=== PATIENT | female | born 1955 | race Caucasian/White ===

== ENCOUNTER 2016-11-16 09:23 | Emergency (ER) | payer OTHER ==
[~2016-11-16] VITALS: Ht 167.6 cm; Wt 74.4 kg
[2016-11-16] MEDS ORDERED: TOPI25TA7 PO (09:55)
[2016-11-16] MEDS ORDERED: MONT10TA6 PO (09:57)
[2016-11-16] MEDS ORDERED: ESTR1.25 PO (09:57)
[2016-11-16] MEDS ORDERED: METF500T4 PO (09:57)
[2016-11-16] MEDS ORDERED: FEXO1TAB27 PO (09:57)
[2016-11-16 09:58] VITALS: BP 133/77
--- NOTE | 2016-11-16 10:38 | PHYS DOC ---
General Chief Complaint: OTHER COMPLAINTS Stated Complaint: LEFT SIDE PAIN Time Seen by MD: 09:26 Source: patient Exam Limitations: no limitations Problems: History of Present Illness Initial Comments Patient is a 61-year-old female who comes to the ED complaining of left face and arm symptoms. Patient states these symptoms have been intermittent or several months now. He saw her primary care doctor this week and a CT evaluation was ordered and completed. The patient has not followed up with her doctor for an office visit, but received a phone call that there were no emergent findings. She states that she's had intermittent sensations of tingling and numbness at her left mastoid process and left cheek. She denies any ptosis tearing tenderness, hearing loss or bad teeth, denies any TMJ symptoms. She denies any trauma, and the left arm symptoms are not dermatomal in origin. She denies any headache until recently. She says her sinuses have been inflamed causing her to have intermittent facial discomfort, but no actual headache. She denies any focal neurologic deficit, her metformin and Toprol were recently decreased, as the patient has lost a significant amount of weight after lap band procedure. She denies any symptoms in the emergency department stating that her symptoms are intermittent and typically very short-lived. She says she did feel cold in her left arm and may be her left leg earlier today but denies concomitant headache, left arm symptoms or actual hard left lower extremity neuro deficits. She was talking with a friend earlier today and after describing her symptoms. Her friend convinced her to come to the emergency department urgently. She denies chest pain difficulty breathing. Timing/Duration: changing over time Severity: mild Modifying Factors: improves with other Associated Symptoms: other Allergies: Coded Allergies: Penicillins (Verified Allergy, Intermediate, 11/16/16) Past Medical History Medical History: diabetes, hypertension, other (obesity) Surgical History: other (lap band, hysterectomy) Family History Significant Family History: heart disease (sister was recently diagnosed with coronary artery disease) Social History Smoker: non-smoker Alcohol: none Drugs: none Review of Systems Constitutional: denies chills, denies diaphoresis, denies fever, denies malaise EENTM: denies eye pain, denies blurred vision, denies tearing, denies ear pain , denies ear discharge, denies nose pain, denies nose congestion, denies throat pain, denies throat swelling, denies mouth pain, denies mouth swelling Respiratory: denies cough, denies shortness of breath, denies wheezing Cardiovascular: denies chest pain, denies palpitations, denies syncope Gastrointestinal: denies abdominal pain, denies diarrhea, denies nausea, denies vomiting Musculoskeletal: denies back pain, denies joint swelling, denies neck pain Psychiatric/Neurological: see HPI Hematologic/Lymphatic: denies blood clots, denies easy bleeding, denies easy bruising Physical Exam General Appearance: WD/WN, no apparent distress Eyes: bilateral eye normal inspection, bilateral eye PERRL, bilateral eye EOMI Ear, Nose, Throat: hearing grossly normal, normal ENT inspection, normal pharynx Neck: supple (left sided scalene hypertonicity with tenderness noted. No bony tenderness. 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 No STEMI. Interpreted by Dr. Torres. The patient needs an outpatient stress test for risk factors, we discussed that. I discussed peripheral nerve entrapment at length. I discussed signs and symptoms to monitor and indication to return to the ED. Today's symptoms appear to be peripheral nerve entrapment from muscle spasm in the neck. Patient has had no chest pain or trouble breathing, no headache or neuro deficits here in the emergency department and her vital signs been stable. Patient is stable for discharge home. She agrees to follow-up closely per instructions. See departure. Departure Time of Disposition: 10:35 Disposition: 01 HOME, SELF-CARE Diagnosis: L scalene spasm with peripheral neuropathy Condition: GOOD Patient Instructions: Cervical Strain and Sprain with Rehab-SportsMed Additional Instructions: As discussed, it appears that your symptoms result from intermittent spasm of skeletal muscle which can at times entrap peripheral nerves. Heating pad, stretching as discussed. OTC tylenol/ibuprofen as needed. Consider chiropractic or massage therapy. Follow up with your doctor for CT results and to discuss possible Physical Therapy referral. Follow up with your doctor to arrange for stress testing. Return to ED with new or changing symptoms. DAVID TORRES DO Nov 16, 2016 10:38
--- NOTE | 2016-11-16 17:20 | EKG ---
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
== END 2016-11-16 10:51 | disposition home or self-care (01) ==
LOC: ER 09:23
DX: M62.838 Other muscle spasm (principal); E11.42 Type 2 diabetes mellitus with diabetic polyneuropathy; E66.9 Obesity, unspecified; I10 Essential (primary) hypertension; Z88.0 Allergy status to penicillin
CPT/HCPCS: 93005; 99283-25

== ENCOUNTER → 2017-05-14 | Outpatient (CLI) | payer OTHER ==
[~2017-05-14] MED LIST: ESTR1.25 PO; FEXO1TAB27 PO; METF500T4 PO; MONT10TA6 PO; TOPI25TA7 PO
--- NOTE | 2017-05-14 17:15 | RAD ---
CT study of the maxillofacial bones without contrast Clinical indications: Numbness across the face. No surgery to sinus area. [employer] protocol. TECHNIQUE: Helical CT scanning of the maxillofacial bones and head was performed using the Ener1 protocol. Multiplanar 2-D reconstructions were generated. PQRS compliance Statement One or more of the following individualized dose reduction techniques were utilized for this study: 1. Automated exposure control 2. Adjustment of the mA and/or kV according to patient size 3. Use of iterative reconstruction technique FINDINGS: The maxillary and sphenoid and frontal sinuses are clear. There is mild mucosal thickening of the anterior ethmoid sinuses bilaterally. The posterior ethmoid sinuses are clear bilaterally. No air-fluid levels are evident. No osteolytic process is seen. No intracranial mass lesion or hemorrhage is seen. The orbits are symmetric. No acute fracture is evident. There is S-shaped nasal septal deviation. There is mild mucosal thickening of the middle and inferior turbinates bilaterally. No polyp or soft tissue mass of the nasal passageway is seen. Middle ear cavities are clear bilaterally. The adenoids are not abnormally thickened. IMPRESSION: Mild mucosal thickening of the anterior ethmoid sinuses bilaterally. No air-fluid levels. Electronically signed by: Abraham Qureshi MD (05/14/2017 5:12 PM) [facility]
== END | disposition home or self-care (01) ==
LOC: CT 08:46
PROVIDERS: ATTEND Otolaryngology
DX: G50.1 Atypical facial pain (principal); J34.2 Deviated nasal septum; R20.0 Anesthesia of skin
CPT/HCPCS: 70486

== ENCOUNTER 2017-11-20 14:01 | Inpatient (IN) | payer OTHER ==
[~2017-11-20] VITALS: Ht 167.6 cm; Wt 78.9 kg
[~2017-11-20 14:01] MED LIST changes: +METF500T16 PO; -METF500T4 PO
[2017-11-20 14:43] VITALS: BP 106/74
[2017-11-20] MEDS ORDERED: ONDANSETRON PF 4 MG/2 ML VIAL. IV PRN (15:00)
[2017-11-20] MEDS ORDERED: IOHEXOL 300 MG/ML 75 ML VIAL. IV ONE (15:15)
[2017-11-20] MEDS ORDERED: IOHEXOL 240 MG/ML 50ML VIAL. PO ONE (15:15)
[2017-11-20] MEDS: IV NORMAL SALINE 1,000ML 1,000 ML IV SCH ×2 (15:25→23:34)
[2017-11-20 15:27] LABS: ALBUMIN 3.9 g/dL (3.4-5.0); ALBUMIN/GLOBULIN RATIO 1.1 (1.0-1.7); CALCIUM 9.2 mg/dL (8.5-10.1); CREATININE 1.1 mg/dL (0.6-1.0); GFR 50.3; TOTAL BILIRUBIN 0.5 mg/dL (0.2-1.0); TOTAL PROTEIN 7.5 g/dL (6.4-8.2)
[2017-11-20] MEDS ORDERED: CONTRAST GIVEN MC PRN (15:30)
[2017-11-20 15:31] LABS: BASO % 0 % (0-3); EOS % 0 % (0-3); HEMATOCRIT 41.1 % (36.0-47.0); LYMPH # 0.9 x10^3/uL (1.0-4.8); LYMPH % 6 % (24-48); MEAN CORPUSCULAR HEMOGLOBIN 30 pg (25-35); MEAN CORPUSCULAR HGB CONC 34 g/dL (31-37); MEAN CORPUSCULAR VOLUME 89 fL (79-100); MONO # 0.6 x10^3/uL (0.0-1.1); MONO % 4 % (0-9); NEUT # 13.7 x10^3uL (1.8-7.7); NEUT % 90 % (31-73); PLATELET COUNT 171 x10^3/uL (140-400); RED BLOOD COUNT 4.64 x10^6/uL (3.50-5.40); RED CELL DISTRIBUTION WIDTH 13.1 % (11.5-14.5); WHITE BLOOD COUNT 15.2 x10^3/uL (4.0-11.0)
[2017-11-20 15:43] LABS: INFLUENZA A PATIENT NEGATIVE (NEGATIVE); INFLUENZA B PATIENT NEGATIVE (NEGATIVE)
--- NOTE | 2017-11-20 15:48 | EKG ---
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
[2017-11-20] MEDS ORDERED: MINO2.5T12 PO (16:10)
[2017-11-20] MEDS ORDERED: ZOLP10TA4 PO (16:10)
[2017-11-20] MEDS ORDERED: METO50TA29 PO (16:10)
[2017-11-20 16:36] LABS: % BANDS 11 % (0-9); % SEGS 76 % (35-66)
[2017-11-20 16:37] LABS: % BASOS 0 % (0-3); % EOS 0 % (0-5); % LYMPHS 10 % (24-48); % MONOS 3 % (0-10); PLT ESTIMATE ADEQUATE (ADEQUATE)
--- NOTE | 2017-11-20 16:44 | NUR ---
The patient, LES PICKENS, 62 y/o, F admitted by VLADIMIR AUSTIN MD, was given written information regarding hospital policies, unit procedures and contact persons. Valuables were checked and left in room. Patient direct admit from Dr. Tesfaye office, states this came on very sudden. Started to have nausea, achy and fever like symptoms. Complains of headache and pain to left lower quadrant. Orders obtained from physicians office, and aware of arrival to unit. IV and labs obtained, will check Influenza and strep test. Pt able to verbalize POC, will continue to monitor.
[2017-11-20] MEDS ORDERED: IBUPROFEN 600 MG TABLET. PO PRN (17:15)
[2017-11-20 17:32] LABS: BACTERIA,URINE 0 /HPF (0-FEW); BILIRUBIN,URINE NEG (NEG); CLARITY,URINE CLEAR; COLOR,URINE STRAW; GLUCOSE,URINE NEG (NEG); NITRITE,URINE NEG (NEG); RBC,URINE 0 /HPF (0-2); SQUAMOUS EPITHELIAL CELL,UR OCC /LPF; UROBILINOGEN,URINE 0.2 mg/dL (0.2 mg/dL); WBC,URINE 0 /HPF (0-4)
--- NOTE | 2017-11-20 17:36 | RAD ---
CT CHEST ABD PELVIS W/CONTRAST Indication: Left lower quadrant pain for 3 days, chills and coughing, low-grade fever Technique: Postcontrast CT imaging was performed of the chest, abdomen, pelvis, multiplanar reconstruction images submitted. One or more of the following individualized dose reduction techniques were utilized for this examination: 1. Automated exposure control 2. Adjustment of the mA and/or kV according to patient size 3. Use of iterative reconstruction technique. Contrast: 75 cc Omnipaque 300 Comparison: None CHEST: Findings: There is some motion degradation. There is no pleural or pericardial effusion, pneumothorax, significant infiltrate. Major airways are patent. There is mild probable atelectasis of the right middle lobe more medially. There is small hiatal hernia, nonspecific wall thickening. There is mild the dilatation of the esophagus. Thoracic aortic caliber is within normal limits without intraluminal flap. There is no abnormality thyroid gland. There is mild superior thoracic levoscoliosis. IMPRESSION: 1. There is mild dilatation of the esophagus, small hiatal hernia with nonspecific wall thickening of involved segment. There is gastric band present. 2. There is mild atelectasis right middle lobe. Abdomen and pelvis: FINDINGS: There is gastric band, again small hiatal hernia with wall thickening of involved segment. Estimated Phi angle is about 45 degrees, considered within normal limits, no previous exams to evaluate for change in position of the gastric band. No focal abnormality is identified of the liver, spleen, pancreas. Gallbladder is present without obvious intraluminal abnormality. Both kidneys enhance without significant hydronephrosis. There are a few small hypodense foci of the kidneys bilaterally too small to accurately characterize, largest on the right about 0.7 cm. Bowel is not significantly dilated. There is no free air or free fluid. There is no significant inflammatory change change localized about the bowel. Descending and sigmoid colon are decompressed, limits accurate evaluation of wall thickness. There is no adrenal nodularity. Normal appendix is visualized. Impression: 1. No significant inflammatory change is identified. 2. There is gastric band, small hiatal hernia with nonspecific wall thickening involved segment. Electronically signed by: Curt Banda MD (11/20/2017 5:32 PM) [facility]
[2017-11-20 18:40] VITALS: BP 101/61
[2017-11-20 23:00] VITALS: BP 106/64
[2017-11-21 04:00] VITALS: BP_SYST 103; BP_SYST 115; BP_DIAS 59; BP_DIAS 65
--- NOTE | 2017-11-21 05:00 | NUR ---
Pt has been sleeping most of this shift. Pt has been afebrile and VSS throughout shift.
[2017-11-21] MEDS: IV NORMAL SALINE 1,000ML 1,000 ML IV SCH (07:57)
[2017-11-21 08:01] LABS: BASO % 0 % (0-3); EOS # 0.2 x10^3/uL (0.0-0.7); EOS % 2 % (0-3); LYMPH # 2.5 x10^3/uL (1.0-4.8); LYMPH % 34 % (24-48); MEAN CORPUSCULAR HEMOGLOBIN 31 pg (25-35); MEAN CORPUSCULAR HGB CONC 34 g/dL (31-37); MEAN CORPUSCULAR VOLUME 89 fL (79-100); MONO # 0.4 x10^3/uL (0.0-1.1); MONO % 6 % (0-9); NEUT # 4.1 x10^3uL (1.8-7.7); NEUT % 57 % (31-73); PLATELET COUNT 214 x10^3/uL (140-400); RED BLOOD COUNT 3.91 x10^6/uL (3.50-5.40); RED CELL DISTRIBUTION WIDTH 13.3 % (11.5-14.5); WHITE BLOOD COUNT 7.2 x10^3/uL (4.0-11.0)
[2017-11-21 08:04] LABS: ALBUMIN 2.6 g/dL (3.4-5.0); ALBUMIN/GLOBULIN RATIO 0.8 (1.0-1.7); CALCIUM 7.6 mg/dL (8.5-10.1); CREATININE 0.9 mg/dL (0.6-1.0); GFR 63.4; POTASSIUM 3.8 mmol/L (3.5-5.1); TOTAL BILIRUBIN 0.6 mg/dL (0.2-1.0); TOTAL PROTEIN 5.9 g/dL (6.4-8.2)
[2017-11-21] MEDS ORDERED: levoFLOXacin 500 MG TABLET PO SCH (10:00)
[2017-11-21 11:00] VITALS: BP 112/55
[2017-11-21] MEDS ORDERED: LEVO500T59 PO (15:57)
[2017-11-21] MEDS ORDERED: METR500T PO (15:57)
--- NOTE | 2017-11-21 16:19 | NUR ---
PT dc to home. PT is able to verbalize understanding of discharge instructions and medications. PT left with friend driving and 2 Rx. Pedro PICKERING
[2017-11-21 16:20] VITALS: BP 132/61
[2017-11-21] MEDS ORDERED: LACTOBACILLUS RHAMNOSUS GG 1 CAPSULE. PO SCH (21:00)
--- NOTE | 2017-11-22 01:21 | PN ---
DATE: SUBJECTIVE: A 62-year-old female, who came in with colitis. She had an elevated white count at 15,000. Also please note an elevated left shift, 11 bands. The patient did have probable colitis. She had left lower quadrant pain. A CT scan did not pick it up contrast, oral contrast was not used. The patient is feeling better this morning. She is on IV Flagyl and oral Levaquin, making good progress, hopefully ready for discharge, but may need to stay on a low-fiber diet for some time and then make further evaluation on her as indicated. IMPRESSION: Colitis of the sigmoid area. PLAN: As above. VLADIMIR AUSTIN MD DR: GIORGIO/rafael JOB#: [id number] / [id number]
== END 2017-11-21 16:22 | disposition home or self-care (01) | DRG 872 ==
LOC: ICU 14:20
PROVIDERS: ADMIT Family Medicine; ATTEND Family Medicine
DX: A41.9 Sepsis, unspecified organism (principal); K52.9 Noninfective gastroenteritis and colitis, unspecified; E86.0 Dehydration; M79.1 Myalgia
CPT/HCPCS: 36415; 71260; 74177; 80053; 81001; 83605; 84484; 85007; 85025; 87040; 87070; 87641; 87804; 87880; 93005; J3490; Q9967; J7030

== ENCOUNTER → 2019-09-26 | Outpatient (CLI) | payer OTHER ==
[~2019-09-26] MED LIST changes: +LEVO500T59 PO; +METO50TA29 PO; +METR500T PO; +MINO2.5T12 PO; -MONT10TA6 PO; +MONT10TA80 PO; +ZOLP10TA PO; +ZOLP10TA4 PO
== END | disposition home or self-care (01) ==
LOC: LAB 09-25 07:00
PROVIDERS: ATTEND Registered Nurse
DX: Z01.818 Encounter for other preprocedural examination (principal); Z11.59 Encounter for screening for other viral diseases; K21.9 Gastro-esophageal reflux disease without esophagitis
CPT/HCPCS: C9803; U0003; 36415

== ENCOUNTER → 2019-09-30 | Day surgery (SDC) | payer OTHER ==
[~2019-09-30] MED LIST changes: +IPRATRPIUM/ALBUTEROL 0.5/2.5MG 3 ML NEBU. NEB PRN; +IV RINGERS SOLUTION,LACTATED 1,000 ML IV SCH; +MIDAZOLAM HCL PF 2 MG/2 ML VIAL. IV ONE; +PROPOFOL 10,000 MCG/ML (20ML) VIAL IV ONE
[2019-09-30 08:49] VITALS: BP 111/70
--- NOTE | 2019-10-01 17:07 | PATHOLOGY ---
[facility] Accession Number: [id number] . 01 Material submitted: . PART A: stomach - GASTRIC BIOPSY PART B: stomach - GASTRIC POLYP PART C: esophagus - DISTAL ESOPHAGUS. Modifiers: distal . 01 Clinical history: . None provided . 02 Diagnosis: A. Gastric biopsies: - Chronic gastritis, mild. . B. Gastric biopsy, gastric polyp: - Fundic gland polyp. . C. Esophageal biopsy, distal esophagus: - Esophagitis with eosinophils. See comment. (JPM:marina; 10/01/2019) [facility] [place] 10/01/2019 0919 Local . 02 Comment: Sections of the gastric biopsy reveal segments of gastric antral/body transition mucosa showing congestion and mild chronic inflammation. A properly controlled immunoperoxidase stain for Helicobacter is negative for Helicobacter organisms. . Sections of the gastric polyp biopsy reveal a polypoid segment of gastric body mucosa showing scattered cystically dilated fundic glands consistent with fundic gland polyp. There are no adenomatous changes or evidence of malignancy. . Sections of the distal esophageal biopsy reveal a segment of hyperplastic squamous esophageal mucosa showing chronic inflammation. There are focally increased intraepithelial eosinophils. The differential diagnosis of esophagitis with eosinophils includes reflux esophagitis, "pill esophagitis", and eosinophilic esophagitis. Focally, there are greater than 20-30 intraepithelial eosinophils per high power field. This finding is suggestive of eosinophilic esophagitis. Correlate clinically. (JPM:marina; 10/01/2019) . Special stain performed: Immunoperoxidase stain for Helicobacter on A1 . 02 Electronically signed: . Avery Hanna MD, Pathologist NPI- [id number] . 01 Gross description: . A. The specimen is received in formalin, labeled "Deisy Gillette, gastric biopsy". Received are two segments of pale castillo soft tissue measuring 0.4 cm each in maximum dimensions. The specimen is submitted entirely in cassette A1. . B. The specimen is received in formalin, labeled "Deisy Schale, gastric polyp". Received is a segment of pale castillo soft tissue measuring 0.4 cm in maximum dimensions. The specimen is submitted entirely in cassette B1. . C. The specimen is received in formalin, labeled "Deisy Schale, distal esophagus". Received is a segment of pale castillo soft tissue measuring 0.5 cm in maximum dimensions. The specimen is submitted entirely in cassette C1. (CAA; 09/30/2019) QAC/QAC 09/30/2019 1632 Local . 02 Pathologist provided ICD-10: K29.50, K31.7, K20.0 . 02 CPT . 919613, 056770, 234650, L15189 Specimen Comment: A courtesy copy of this report has been sent to [phone], [phone] Specimen Comment: [id number] Specimen Comment: Report sent to / DR DOAN Performed at: 01 [facility] [address] [facility] [address], [place] [id number] MD Grant Ellsworth MD Phone: [phone] Performed at: 02 [facility] [address] [place], [place] [id number] MD Avery Hanna MD Phone: [phone]
== END ==
LOC: SURG 07:03
PROVIDERS: ATTEND Emergency Medicine
DX: K29.50 Unspecified chronic gastritis without bleeding (principal); K31.7 Polyp of stomach and duodenum; K20.0 Eosinophilic esophagitis; K21.9 Gastro-esophageal reflux disease without esophagitis; K44.9 Diaphragmatic hernia without obstruction or gangrene; I10 Essential (primary) hypertension; E11.9 Type 2 diabetes mellitus without complications; Z79.899 Other long term (current) drug therapy; Z79.84 Long term (current) use of oral hypoglycemic drugs; Z72.89 Other problems related to lifestyle; Z98.890 Other specified postprocedural states
CPT/HCPCS: 43239; 82947; 88305; 88342; J2704; J7120; 45380

== ENCOUNTER 2020-05-14 10:32 | Emergency (ER) | payer OTHER ==
[~2020-05-14] VITALS: Ht 167.6 cm; Wt 85.8 kg
[~2020-05-14 10:32] MED LIST changes: -IPRATRPIUM/ALBUTEROL 0.5/2.5MG 3 ML NEBU. NEB PRN; -IV RINGERS SOLUTION,LACTATED 1,000 ML IV SCH; -MIDAZOLAM HCL PF 2 MG/2 ML VIAL. IV ONE; -PROPOFOL 10,000 MCG/ML (20ML) VIAL IV ONE
[2020-05-14] MEDS ORDERED: IV NORMAL SALINE 1,000ML 1,000 ML IV SCH (11:15)
[2020-05-14] MEDS ORDERED: IOHEXOL 300 MG/ML 75 ML VIAL. IV ONE ×2 (11:15→11:30)
[2020-05-14 12:06] LABS: BASO % 0 % (0-3); EOS # 0.1 x10^3/uL (0.0-0.7); EOS % 1 % (0-3); HEMATOCRIT 39.4 % (36.0-47.0); HEMOGLOBIN 13.1 g/dL (12.0-15.5); LYMPH # 1.1 x10^3/uL (1.0-4.8); LYMPH % 8 % (24-48); MEAN CORPUSCULAR HEMOGLOBIN 30 pg (25-35); MEAN CORPUSCULAR HGB CONC 33 g/dL (31-37); MEAN CORPUSCULAR VOLUME 90 fL (79-100); MONO # 0.8 x10^3/uL (0.0-1.1); MONO % 6 % (0-9); NEUT # 12.2 x10^3uL (1.8-7.7); NEUT % 86 % (31-73); PLATELET COUNT 274 x10^3/uL (140-400); RED CELL DISTRIBUTION WIDTH 13.4 % (11.5-14.5); WHITE BLOOD COUNT 14.3 x10^3/uL (4.0-11.0)
[2020-05-14 12:13] LABS: CREATININE 0.9 mg/dL (0.6-1.0); POTASSIUM 4.2 mmol/L (3.5-5.1)
[2020-05-14 12:19] LABS: ALBUMIN 3.5 g/dL (3.4-5.0); DIRECT BILIRUBIN 0.1 mg/dL (0.0-0.2); TOTAL BILIRUBIN 0.4 mg/dL (0.2-1.0); TOTAL PROTEIN 7.1 g/dL (6.4-8.2)
[2020-05-14 12:34] LABS: INFLUENZA A PATIENT NEGATIVE (NEGATIVE); INFLUENZA B PATIENT NEGATIVE (NEGATIVE)
--- NOTE | 2020-05-14 13:09 | RAD ---
CT scan of the abdomen and pelvis with contrast 05/14/2020 CLINICAL HISTORY: Nausea, vomiting and diarrhea. TECHNIQUE: After the intravenous administration of 75 cc of Omnipaque 300 only, contiguous, 2.5 mm ax ial sections were obtained through the abdomen and pelvis. One or more of the following individualized dose reduction techniques were utilized for this study: 1. Automated exposure control. 2. Adjustment of the mA and/or kV according to patient size. 3. Use of iterative reconstruction technique. FINDINGS: Comparison study is dated 11/20/2017. Images through the lung bases demonstrate mild cardiomegaly. Right lower lobe atelectasis and/or infi ltrate is noted. The liver parenchyma has a decreased attenuation consistent with fatty infiltration. The spleen, panc reas, adrenal glands and right kidney are within normal limits. A 1 cm rounded low-attenuation lesion is seen involving the midpole of the left kidney. Likely represents a cyst. Atherosclerotic calcification of the abdominal aorta is seen. The abdominal aorta tapers normally. Th e gallbladder is well-distended. A lap band device is seen within the proximal stomach. There is no e vidence of bowel obstruction. The appendix is well-visualized and is within normal limits. Images through the pelvis demonstrate the urinary bladder distended with urine. The patient appears t o be post hysterectomy. No adnexal mass is seen. Calcifications are seen within the pelvis consistent with phleboliths. No free fluid is noted. Very mild S-shaped curvature of the thoracolumbar spine is seen. Degenerative changes are seen involv ing the lower thoracic and throughout the lumbar spine along with both hips. IMPRESSION: No acute abnormality is seen. Electronically signed by: Elvin Florian MD (05/14/2020 1:06 PM) [id number]
[2020-05-14 13:12] LABS: AMPHETAMINE/METHAMPHETAMINE NEG (NEG); BARBITURATES NEG (NEG); BENZODIAZEPINES NEG (NEG); CANNABINOIDS NEG (NEG); COCAINE NEG (NEG); METHADONE NEG (NEG); OPIATES NEG (NEG); PHENCYCLIDINE NEG (NEG)
[2020-05-14] MEDS ORDERED: ONDA4TAB12 PO (14:42)
--- NOTE | 2020-05-14 14:49 | PHYS DOC ---
Past History Past Medical History: GERD Additional Past Medical Histor: seasonal allergies Past Surgical History: Hysterectomy Additional Past Surgical Histo: lab band Alcohol Use: None Drug Use: None General Adult EDM: Chief Complaint: NAUSEA/VOMITING/DIARRHEA HPI: HPI: 64-year-old female past medical history prediabetes, hypertension and GERD, presents to the ED with with complaints of nausea, nonbloody nonbilious vomiting and loose watery diarrhea with associated chills that started on Sunday-called pcp at [facility] who immediately referred patient to ED, was currently in [place], did not want to be evaluated until now. Patient symptoms improved. LBM was yesterday morning, loose and watery. Reports feeling today as if she has no energy. Reports chills on Sunday. States every 4 to 5 weeks she has episodes of nausea, vomiting and diarrhea that are limited and spontaneously resolved. Primary care physician was concerned she might have celiac disease and started her on Protonix, treated empirically for GERD. Was seen by GI in September 2018 with an EGD, is unsure the results. Reports her flu vaccine is up-to-date. States she is receiving her second dose of Materna Covid vaccine on May 20. Tolerated mashed potatoes, rice and ice cream earlier today. Also reports raw, scratchy throat feels like there is a knife in it. No known h/o covid. Review of Systems: Review of Systems: Constitutional: Denies lethargy or fatigue Eyes: Denies change in visual acuity HENT: Denies nasal congestion or rhinorrhea Respiratory: Denies cough or shortness of breath or hemoptysis Cardiovascular: Denies chest pain or edema GI: Denies melena, hematochezia, hematemesis or constipation : Denies dysuria, hematuria or vaginal bleeding Musculoskeletal: Denies back pain or joint pain or unilateral leg swelling Integument: Denies rash or diaphoresis Neurologic: Denies headache, focal weakness or sensory changes Endocrine: Denies polyuria or polydipsia Lymphatic: Denies swollen glands Psychiatric: Denies depression or anxiety Current Medications: Current Meds: Current Medications Medications (Trade) Dose Ordered Sig/Tony Start Time Stop Time Status Last Admin Dose Admin Iohexol (Omnipaque 300 Mg/ml) 75 ml 1X ONCE 05/14/20 11:30 05/14/20 11:31 DC Sodium Chloride 1,000 ml @ 1,000 mls/hr Q1H 05/14/20 11:15 05/14/20 12:14 DC 05/14/20 11:38 1,000 MLS/HR Allergies: Allergies: Allergies Coded Allergies Type Severity Reaction Last Updated Verified Penicillins Allergy Intermediate 05/14/20 Yes Physical Exam: PE: Constitutional: Well developed, well nourished, no acute distress, non-toxic appearance. HENT: Normocephalic, atraumatic, mild pharyngeal erythema with no exudates, dry mucous membranes Eyes: EOMI, conjunctiva normal, no discharge. Neck: Normal range of motion, supple, Cardiovascular: S1/2 present, regular rhythm Lungs & Thorax: Speaking in full sentences, bilateral equal chest rise, no tachypnea or increased work of breathing Abdomen: soft, no tenderness, no peritonitis/guarding/rigidity Skin: Warm, dry, no erythema, no rash. [] Back: No tenderness, no CVA tenderness. [] Extremities: No tenderness, no cyanosis, no lower extremity edema Neurologic: Alert and oriented X 3, normal motor function, normal sensory function, no focal deficits noted. [] Psychologic: Affect normal, judgement normal, mood normal. [] Current Patient Data: Labs: Laboratory Tests Test 05/14/20 11:35 05/14/20 11:45 05/14/20 11:46 05/14/20 12:15 White Blood Count 14.3 x10^3/uL (4.0-11.0) H Red Blood Count 4.40 x10^6/uL (3.50-5.40) Hemoglobin 13.1 g/dL (12.0-15.5) Hematocrit 39.4 % (36.0-47.0) Mean Corpuscular Volume 90 fL (79-100) Mean Corpuscular Hemoglobin 30 pg (25-35) Mean Corpuscular Hemoglobin Concent 33 g/dL (31-37) Red Cell Distribution Width 13.4 % (11.5-14.5) Platelet Count 274 x10^3/uL (140-400) Neutrophils (%) (Auto) 86 % (31-73) H Lymphocytes (%) (Auto) 8 % (24-48) L Monocytes (%) (Auto) 6 % (0-9) Eosinophils (%) (Auto) 1 % (0-3) Basophils (%) (Auto) 0 % (0-3) Neutrophils # (Auto) 12.2 x10^3uL (1.8-7.7) H Lymphocytes # (Auto) 1.1 x10^3/uL (1.0-4.8) Monocytes # (Auto) 0.8 x10^3/uL (0.0-1.1) Eosinophils # (Auto) 0.1 x10^3/uL (0.0-0.7) Basophils # (Auto) 0.0 x10^3/uL (0.0-0.2) Sodium Level 140 mmol/L (136-145) Potassium Level 4.2 mmol/L (3.5-5.1) Chloride Level 105 mmol/L (98-107) Carbon Dioxide Level 24 mmol/L (21-32) Anion Gap 11 (6-14) Blood Urea Nitrogen 11 mg/dL (7-20) Creatinine 0.9 mg/dL (0.6-1.0) Estimated GFR (Cockcroft-Gault) 63.0 Glucose Level 140 mg/dL (70-99) H Calcium Level 9.0 mg/dL (8.5-10.1) Total Bilirubin 0.4 mg/dL (0.2-1.0) Direct Bilirubin 0.1 mg/dL (0.0-0.2) Aspartate Amino Transferase (AST) 16 U/L (15-37) Alanine Aminotransferase (ALT) 20 U/L (14-59) Alkaline Phosphatase 60 U/L (46-116) Creatine Kinase 90 U/L (26-192) Troponin I Quantitative < 0.017 ng/mL (0-0.055) Total Protein 7.1 g/dL (6.4-8.2) Albumin 3.5 g/dL (3.4-5.0) Lipase 105 U/L (73-393) Influenza Type A (Rapid) Negative (NEGATIVE) Influenza Type B (Rapid) Negative (NEGATIVE) Group A Streptococcus Rapid Negative (NEGATIVE) Urine Opiates Screen Neg (NEG) Urine Methadone Screen Neg (NEG) Urine Barbiturates Neg (NEG) Urine Phencyclidine Screen Neg (NEG) Urine Amphetamine/Methamphetamine Neg (NEG) Urine Benzodiazepines Screen Neg (NEG) Urine Cocaine Screen Neg (NEG) Urine Cannabinoids Screen Neg (NEG) Urine Ethyl Alcohol Neg (NEG) Vital Signs: Vital Signs Date Time Temp Pulse Resp B/P (MAP) Pulse Ox O2 Delivery O2 Flow Rate FiO2 05/14/20 12:55 83 16 149/80 (103) 99 05/14/20 10:35 98.4 Room Air EKG: EKG: Sinus rhythm at 79 bpm, left axis deviation, normal intervals, T wave inversion lead III, no ST elevations or ST depressions, no active chest pain or pressure Radiology/Procedures: Radiology/Procedures: IMAGING REPORT Signed PATIENT: LES PICKENS ACCOUNT: [id number] : 1955 LOCATION: ER AGE: 64 SEX: F EXAM STATUS: REG ER ORD. PHYSICIAN: DOLORES DE LEON DO REASON: NAUSEA/VOMITING/DIARRHEA- ORDERED CONTRAST PROCEDURE: CT ABD PELV W/ IV CONTRST ONLY CT scan of the abdomen and pelvis with contrast 05/14/2020 CLINICAL HISTORY: Nausea, vomiting and diarrhea. TECHNIQUE: After the intravenous administration of 75 cc of Omnipaque 300 only, contiguous, 2.5 mm axial sections were obtained through the abdomen and pelvis. One or more of the following individualized dose reduction techniques were utilized for this study: 1. Automated exposure control. 2. Adjustment of the mA and/or kV according to patient size. 3. Use of iterative reconstruction technique. FINDINGS: Comparison study is dated 11/20/2017. Images through the lung bases demonstrate mild cardiomegaly. Right lower lobe atelectasis and/or infiltrate is noted. The liver parenchyma has a decreased attenuation consistent with fatty infiltration. The spleen, pancreas, adrenal glands and right kidney are within normal limits. A 1 cm rounded low-attenuation lesion is seen involving the midpole of the left kidney. Likely represents a cyst. Atherosclerotic calcification of the abdominal aorta is seen. The abdominal aorta tapers normally. The gallbladder is well-distended. A lap band device is seen within the proximal stomach. There is no evidence of bowel obstruction. The appendix is well-visualized and is within normal limits. Images through the pelvis demonstrate the urinary bladder distended with urine. The patient appears to be post hysterectomy. No adnexal mass is seen. Calcifications are seen within the pelvis consistent with phleboliths. No free fluid is noted. Very mild S-shaped curvature of the thoracolumbar spine is seen. Degenerative changes are seen involving the lower thoracic and throughout the lumbar spine along with both hips. IMPRESSION: No acute abnormality is seen. Electronically signed by: Elvin Haile MD (05/14/2020 1:06 PM) [id number] DICTATED AND SIGNED BY: ELVIN HAILE MD DATE: 05/14/20 1301 CC: NON,STAFF; [facility] 0 Heart Score: C/O Chest Pain: No Risk Factors: Risk Factors: DM, Current or recent (<one month) smoker, HTN, HLP, family history of CAD, obesity. Risk Scores: Score 0 - 3: 2.5% MACE over next 6 weeks - Discharge Home Score 4 - 6: 20.3% MACE over next 6 weeks - Admit for Clinical Observation Score 7 - 10: 72.7% MACE over next 6 weeks - Early Invasive Strategies Course & Med Decision Making: Course & Med Decision Making Pertinent Labs and Imaging studies reviewed. (See chart for details) COVID-19 CRITERIA: The patient was evaluated during the global COVID-19 pandemic, and that diagnosis was considered upon their initial presentation. Their evaluation, treatment and testing was consistent with current guidelines for patients who present with complaints or symptoms that may be related to COVID-19. Concern for intermittent episodes of nausea, vomiting and loose watery diarrhea that occur q 4-5 weeks -ibs? This has been chronic for > 1year. Also reports sore throat and lack of energy. Labs show no electrolyte abnormalities, normal lipase and troponin. CT abdomen pelvis with no acute process. Patient well- appearing and tolerating oral intake. Suspect food allergy versus viral process vs GI disorder. Is hemodynamically stable with mild, asymptomatic hypertension. Nonspecific leukocytosis on labs, does not meet sepsis criteria. Will discharge home with strict ED return precautions were given for severe nausea, vomiting, diarrhea, syncope, neurologic complaints abdominal pain. Encouraged urgent outpatient follow-up with PMD and gastroenterology. Life- threatening processes were considered but are low suspicion at this time, given history, physical exam and ED workup. Pt was educated on all prescription medications and adverse effects. All patient's questions were answered and pt was stable at time of discharge. Life/limb-threatening differential includes but is not limited to, acute coron jayant syndrome/myocardial infarction, Boerhaave's, DKA, intracranial hemorrhage, ischemic bowel, meningitis, sepsis, surgical abdomen (AAA), toxidrome (drug over/overdose/carbon monoxide, etc), ovarian/testicular torsion, trauma, or infection/sepsis. I spoken with the patient and her caregivers. I explained the patient's condition, diagnoses and treatment plan based on the information available to me at this time. I have answered the patient and her caregiver's questions and addressed any concerns. The patient and her caregivers have a good understanding of patient's diagnosis, condition and treatment plan as can be expected at this point. Vital signs have been stable. Patient's condition is stable and appropriate for discharge from the emergency department. Patient will pursue further outpatient evaluation with primary care physician or other designated or consulting physician as outlined in the discharge instructions. The patient and/or caregivers are agreeable to this plan of care and follow-up instructions have been explained in detail. The patient and/or caregivers have received these instructions in written form and have expressed an understanding of the discharge instructions. The patient and/or caregivers are aware that any significant change of condition or worsening of symptoms should prompt immediate return to this or the closest emergency department or call to 911. [email or web address] Disclaimer: [email or web address] Disclaimer: This electronic medical record was generated, in whole or in part, using a voice recognition dictation system. Departure Departure: Impression: Primary Impression: Nausea vomiting and diarrhea Additional Impressions: Sore throat Viral upper respiratory illness Person under investigation for COVID-19 Disposition: 01 DC HOME SELF CARE/HOMELESS Condition: STABLE Referrals: NON,STAFF (PCP) In 2 to 3 days for reevaluation FOLLOW UP WITH FAMILY MEDICINE: [facility], [place], [facility] [address] [id number] [place] [facility] Patient Instructions: Diarrhea, Nausea and Vomiting, Sore Throat Additional Instructions: Return to ED immediately if your oxygen level drops below 90% (purchase a pulse oximetry at a medical supply store), difficulties breathing including rapid breathing or increased work of breathing (skin sucking under ribs), chest pain or stroke-like symptoms (facial droop, speech changes, arm/leg weakness). FOLLOW UP WITH GASTROENTEROLOGY: [facility] [address], [address], [place] [address] EMERGENCY DEPARTMENT GENERAL DISCHARGE INSTRUCTIONS Thank you for coming to [facility] (ED) today and trusting us with you care. We trust that you had a positivie experience in our Emergency Department. If you wish to speak to the department management, you may call the director at [phone]. YOUR FOLLOW UP INSTRUCTIONS ARE FOLLOWS: 1. Do you have a private Doctor? If you do not have a private doctor, please ask for a resource list of physicians or clinics that may be able to assist you with follow up care. 2. The Emergency Physician has interpreted your x-rays. The X-Ray specialist will also review them. If there is a change in the findings, you will be notified in 48 hours when at all possible. 3. A lab test or culture has been done, your results will be reviewed and you will be notified if you need a change in treatment. ADDITIONAL INSTRUCTIONS AND INFORMATION: 1. Your care today has been supervised by a physician who is specially trained in emergency care. Many problems require more than one evaluation for a complete diagnosis and treatment. We recommend that you schedule your follow up appointment as recommended to ensure complete treatment of you illness or injury. If you are unable to obtain follow up care and continue to have a problem, or if your condition worsens, we recommend that you return to the ED. 2. We are not able to safely determine your condition over the phone nor are we able to give sound medical advice over the phone. For these safety reasons, if you call for medical advice we will ask you to come to the ED for further evaluation. 3. If you have any questions regarding these discharge instructions please call the ED at [phone]. SAFETY INFORMATION: In the interest of safety, wellness, and injury prevention; we encourage you to wear your sealbelt, if you smoke; quite smoking, and we encourage family to use a protective helmet for bicycling and other sporting events that present an increased risk for head injury. IF YOUR SYMPTOMS WORSEN OR NEW SYMPTOMS DEVELOP, OR YOU HAVE CONCERNS ABOUT YOUR CONDITION; OR IF YOUR CONDITION WORSENS WHILE YOU ARE WAITING FOR YOUR FOLLOW UP APPOINTMENT; EITHER CONTACT YOUR PRIMARY CARE DOCTOR, THE PHYSICIAN WHOSE NAME AND NUMBER YOU WERE GIVEN, OR RETURN TO THE ED IMMEDIATELY. Scripts Ondansetron Hcl (ZOFRAN) 4 Mg Tablet 1 TAB PO PRN Q6HRS PRN for NAUSEA, #20 TAB Prov: DOLORES DE LEON DO 05/14/20 DOLORES DE LEON DO May 14, 2020 14:49
[2020-05-14 15:05] VITALS: BP 136/82
[2020-05-14] MEDS ORDERED: ONDA4TAB7 PO (15:13)
--- NOTE | 2020-05-14 15:13 | EKG ---
[address] [address] Test Date: 2020-05-14 Test Time: 14:43:08 Pat Name: LES PICKENS Department: Room: Gender: F Pocket Builder: BECCA : 1955 Requested By: DOLORES DE LEON Order Number: [id number] Reading MD: Measurements Intervals Bear Rate: 79 P: 28 OK: 170 QRS: -15 QRSD: 88 T: 26 QT: 394 QTc: 453 Interpretive Statements SINUS RHYTHM LEFTWARD AXIS OTHERWISE NORMAL ECG RI6.02 No previous ECG available for comparison
--- NOTE | 2020-05-17 11:20 | NUR ---
IP note: Call to pt, notified of negative result. Pt has no questions.
== END 2020-05-14 15:10 | disposition home or self-care (01) ==
LOC: ER 10:32
DX: R11.2 Nausea with vomiting, unspecified (principal); J06.9 Acute upper respiratory infection, unspecified; R19.7 Diarrhea, unspecified; K21.9 Gastro-esophageal reflux disease without esophagitis; I10 Essential (primary) hypertension; Z20.822 Contact with and (suspected) exposure to COVID-19; Z88.0 Allergy status to penicillin
CPT/HCPCS: 36415; 74177; 80048; 80076; 80307; 82550; 83690; 84484; 85025; 87070; 87804; 87880; 93005; 96360; 96361; 99285; C9803; J7030; Q9967; U0003; 96374